=== PATIENT | male | born 1980 | race Caucasian/White ===

== ENCOUNTER 2019-11-28 15:02 | Emergency (ER) | payer BC, OTHER | END 2019-11-28 15:48 | disposition home or self-care (01) | LOC: ERS 15:02 | DX: J06.9 Acute upper respiratory infection, unspecified (principal); F90.9 Attention-deficit hyperactivity disorder, unspecified type; F17.200 Nicotine dependence, unspecified, uncomplicated; Z79.899 Other long term (current) drug therapy | CPT/HCPCS: 99283 ==

== ENCOUNTER 2021-06-20 08:57 | Outpatient (CLI) | payer BC | END 2021-06-20 08:58 | disposition home or self-care (01) | LOC: TBSIIMAG 08:57 | PROVIDERS: ATTEND Student in an Organized Health Care Education/Training Program | DX: M23.8X1 Other internal derangements of right knee (principal) ==

== ENCOUNTER 2021-10-05 13:28 | Outpatient (CLI) | payer BC | END 2021-10-05 13:29 | disposition home or self-care (01) | LOC: ULT 13:28 | PROVIDERS: ATTEND Student in an Organized Health Care Education/Training Program | DX: R00.0 Tachycardia, unspecified (principal); I08.1 Rheumatic disorders of both mitral and tricuspid valves | CPT/HCPCS: 93306 ==